=== PATIENT | female | born 1935 | race Caucasian/White ===

== ENCOUNTER → 2022-10-14 10:06 | Outpatient (BNVA) | payer MEDICARE, OTHER, SELFPAY | PROVIDERS: Family Provider Physician Assistant Medical; Visit Provider Nurse Practitioner Family | DX: L85.3 Xerosis cutis (principal); D22.5 Melanocytic nevi of trunk; L81.4 Other melanin hyperpigmentation; L57.8 Other skin changes due to chronic exposure to nonionizing radiation; L82.1 Other seborrheic keratosis; L57.0 Actinic keratosis; L71.8 Other rosacea; I87.2 Venous insufficiency (chronic) (peripheral); L82.0 Inflamed seborrheic keratosis; L90.5 Scar conditions and fibrosis of skin; Z48.817 Encounter for surgical aftercare following surgery on the skin and subcutaneous tissue; Z12.83 Encounter for screening for malignant neoplasm of skin | CPT/HCPCS: 17000; 17003; 17110; 99204 ==

== ENCOUNTER 2023-03-16 11:50 | Outpatient (CLI) | payer MEDICARE, OTHER, SELFPAY ==
--- NOTE | 2023-03-16 | MM_ITS ---
WS: [id number] Diagnostic LEFT MAMMOGRAM with tomosynthesis. LEFT BREAST ULTRASOUND HISTORY: HX OF BR CA; RT MST, palpable area along the superior breast. COMPARISON: 03/21/2015 LEFT MAMMOGRAM: Spot compression views and true ML with tomosynthesis and sympathetic mammography. Palpable triangular marker is placed near 12:00. There is no underlying mass identified. There is a s mall lymph node towards the axillary tail. There are a few benign arterial calcifications scattered t hroughout the breast. No distortion. Near complete fatty replacement of the breast. LEFT BREAST ULTRASOUND 2-D and color Doppler imaging submitted. Ultrasound directed to the superior breast at the area of the palpable abnormality towards 12-1 o'francoise ck. There is no mass identified. No increased vascularity. No soft tissue thickening. IMPRESSION: MM/[place] [id number] BI-RADS: 2-Benign FOLLOW UP: 1 Year Follow-up
--- NOTE | 2023-03-16 12:23 | US_ITS ---
WS: [id number] Diagnostic LEFT MAMMOGRAM with tomosynthesis. LEFT BREAST ULTRASOUND HISTORY: HX OF BR CA; RT MST, palpable area along the superior breast. COMPARISON: 03/21/2015 LEFT MAMMOGRAM: Spot compression views and true ML with tomosynthesis and sympathetic mammography. Palpable triangular marker is placed near 12:00. There is no underlying mass identified. There is a s mall lymph node towards the axillary tail. There are a few benign arterial calcifications scattered t hroughout the breast. No distortion. Near complete fatty replacement of the breast. LEFT BREAST ULTRASOUND 2-D and color Doppler imaging submitted. Ultrasound directed to the superior breast at the area of the palpable abnormality towards 12-1 o'francoise ck. There is no mass identified. No increased vascularity. No soft tissue thickening. IMPRESSION: US/US breast LT limited* [id number] BI-RADS: 2-Benign FOLLOW UP: 1 Year Follow-up
== END 2023-03-16 11:51 | disposition home or self-care (01) ==
PROVIDERS: PCP Internal Medicine; Visit Provider Internal Medicine
DX: Z85.3 Personal history of malignant neoplasm of breast (principal); Z90.11 Acquired absence of right breast and nipple
CPT/HCPCS: 76642; 77061; G0279

== ENCOUNTER → 2023-07-20 11:27 | Outpatient (BNVA) | payer MEDICARE, OTHER, SELFPAY | PROVIDERS: PCP Internal Medicine; Visit Provider Nurse Practitioner Family | DX: Z85.828 Personal history of other malignant neoplasm of skin (principal); L82.0 Inflamed seborrheic keratosis; L57.0 Actinic keratosis; L57.8 Other skin changes due to chronic exposure to nonionizing radiation; D22.4 Melanocytic nevi of scalp and neck; L81.4 Other melanin hyperpigmentation; L82.1 Other seborrheic keratosis | CPT/HCPCS: 17000; 17110; 99213 ==

== ENCOUNTER → 2023-12-28 12:48 | Outpatient (BNVA) | payer MEDICARE, OTHER, SELFPAY | PROVIDERS: PCP Internal Medicine; Visit Provider Internal Medicine | DX: R07.9 Chest pain, unspecified (principal) | CPT/HCPCS: 93005 ==

== ENCOUNTER 2024-01-31 08:37 | Outpatient (CLI) | payer MEDICARE, OTHER, SELFPAY ==
--- NOTE | 2024-01-31 | ECG_ITS ---
[facility] Test Date: 2024-01-31 Pat Name: Marlen Banks Department: Room: Gender: Female [employer]: : 1935 Requested By: Ronn Quinonez Order Number: [id number] Reading : Interpretive Statements Lung unchanged pre/post procedure; Intraprocedure shortess of breath; Symptoms resoled by discharge [id number]
[2024-01-31 09:10] VITALS: BMI 24.2
--- NOTE | 2024-01-31 09:15 | NMCV_ITS ---
NM melquiades perf SPECT r/s* [id number] Marlen Banks Age: 88 Gender: F : 1935 Exam Date: 01/31/2024 10:09 Ordering Phys: Ronn Quinonez M.D ([email or web address]) Technologist: DOROTHY Montenegro Exam Location: [facility] Indications: SOB, CP STRESS TEST [facility] IMAGE PROTOCOL Rest/Stress 1 Lexiscan Day Radiopharmaceutical Dose (mCi) Administration Site Administered by Rest: Tc-99m 10.2 IV DOROTHY [place] Sestamibi Stress:Tc-99m 32.6 IV DOROTHY [place] Sestamibi Rest: 31-Jan-2024 60 Discovery 630 Stress: 31-Jan-2024 30 Discovery 630 0.4mg Lexiscan. Supine position only as patient was unable to lay prone. SPECT RESULTS Technical Quality: Good Raw Data Analysis: Difficult to process due to hiatal hernia, Image Corrections: No attenuation or motion correction applied Summed Stress Score: 5 Summed Rest Score: 5 Summed Difference Score: 0 PERFUSION FINDINGS Medium sized area of partially reversible perfusion defect seen in inferolateral wall. 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 Medium sized area of fixed perfusion defect is seen in inferior septal wall. This is consistent with medium sized area of prior infarct in RCA territory. No significant reversibility seen. FUNCTIONAL RESULTS (calculated via Gated SPECT) Stress Image LV EF (%): 83 Stress EDV (mL):90 TID: 0.9 Stress ESV (mL):15 FUNCTIONAL FINDINGS: There is normal left ventricular systolic function. IMPRESSIONS 1. 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 2. Medium sized area of prior infarct is seen in the RCA territory 3. LV systolic function is normal Ronn Quinonez MD (Electronically Signed) Final Date: 31 January 2024 13:57 S
[2024-01-31] MEDS: regadenoson 0.4 Mg/5 ml Syringe IVP (11:03)
[2024-01-31 11:26] VITALS: BP 134/64; PULSE 76
== END 2024-01-31 08:38 | disposition home or self-care (01) ==
LOC: CDL 08:38
PROVIDERS: PCP Internal Medicine; Visit Provider Internal Medicine
DX: R07.9 Chest pain, unspecified (principal); R06.02 Shortness of breath
CPT/HCPCS: 36415; 78452; 93017; 96374; A9500; J2785

== ENCOUNTER → 2024-03-01 13:33 | Outpatient (BNVA) | payer MEDICARE, OTHER, SELFPAY | PROVIDERS: PCP Internal Medicine; Visit Provider Internal Medicine | DX: I48.91 Unspecified atrial fibrillation (principal); E78.5 Hyperlipidemia, unspecified; I10 Essential (primary) hypertension; E11.9 Type 2 diabetes mellitus without complications | CPT/HCPCS: 99214 ==